=== PATIENT | female | born 1970 | race Caucasian/White ===

== ENCOUNTER 2017-10-15 16:16 | Emergency (ER) | payer OTHER ==
[~2017-10-15] VITALS: Ht 149.9 cm; Wt 76.2 kg
[~2017-10-15 16:16] MED LIST: CITALOPRAM20 MG PO; DILTIAZEM ER240 M1 PO; OMEPRAZOLE20 MG PO; PEPCID PO
[2017-10-15 18:30] VITALS: BP 139/96
== END 2017-10-15 18:51 | disposition home or self-care (01) ==
LOC: ED 16:16
DX: S82.832A Other fracture of upper and lower end of left fibula, initial encounter for closed fracture (principal); S80.212A Abrasion, left knee, initial encounter; I10 Essential (primary) hypertension; K21.9 Gastro-esophageal reflux disease without esophagitis; V87.8XXA Person injured in other specified noncollision transport accidents involving motor vehicle (traffic), initial encounter; Y93.55 Activity, bike riding; Y99.8 Other external cause status; Y92.89 Other specified places as the place of occurrence of the external cause
CPT/HCPCS: J1885

== ENCOUNTER 2017-12-01 15:14 | Emergency (ER) | payer OTHER ==
[~2017-12-01] VITALS: Ht 149.9 cm; Wt 69.6 kg
[2017-12-01 15:24] VITALS: BP 155/62; Ht 149.9 cm; Wt 69.6 kg
== END 2017-12-01 17:09 | disposition home or self-care (01) ==
LOC: ED 15:14
DX: S82.832A Other fracture of upper and lower end of left fibula, initial encounter for closed fracture (principal); X58.XXXA Exposure to other specified factors, initial encounter; Y93.89 Activity, other specified; Y99.8 Other external cause status; Y92.89 Other specified places as the place of occurrence of the external cause

== ENCOUNTER 2020-10-26 04:56 | Emergency (ER) | payer OTHER ==
[~2020-10-26] VITALS: Ht 149.9 cm; Wt 64.9 kg
[2020-10-26 05:01] VITALS: Ht 149.9 cm; Wt 64.9 kg
[2020-10-26 07:05] VITALS: BP 116/66
== END 2020-10-26 08:39 | disposition home or self-care (01) ==
LOC: ED 04:56
DX: S00.03XA Contusion of scalp, initial encounter (principal); S61.307A Unspecified open wound of left little finger with damage to nail, initial encounter; J44.9 Chronic obstructive pulmonary disease, unspecified; I10 Essential (primary) hypertension; Z90.710 Acquired absence of both cervix and uterus; Y04.0XXA Assault by unarmed brawl or fight, initial encounter; Y93.89 Activity, other specified; Y92.89 Other specified places as the place of occurrence of the external cause; Y99.8 Other external cause status
CPT/HCPCS: 90715; A4570; J3010